=== PATIENT | female | born 1955 | race African-American/Black ===

== ENCOUNTER 2024-08-07 14:56 | Emergency (ER) | payer OTHER ==
[~2024-08-07] VITALS: Ht 165.1 cm; Wt 148.0 kg
[2024-08-07 15:17] VITALS: O2SAT 99
[2024-08-07] MEDS ORDERED: ATEN50TA MT (19:30)
[2024-08-07] MEDS ORDERED: METF-416 MT (19:30)
[2024-08-07] MEDS ORDERED: GLIP10TA17 MT (19:30)
[2024-08-07] MEDS ORDERED: LISI20TA31 MT (19:30)
[2024-08-07 19:43] VITALS: BP 147/86; PULSE 70; RESP 18; TEMP 36.78072; O2SAT 98
== END 2024-08-07 19:45 | disposition home or self-care (01) ==
LOC: ER 14:56
DX: E11.9 Type 2 diabetes mellitus without complications (principal); I10 Essential (primary) hypertension; Z76.0 Encounter for issue of repeat prescription; Z79.84 Long term (current) use of oral hypoglycemic drugs; Z79.899 Other long term (current) drug therapy
CPT/HCPCS: 99281

== ENCOUNTER 2025-04-17 08:20 | Emergency (ER) | payer OTHER ==
[~2025-04-17] VITALS: Ht 170.2 cm; Wt 158.0 kg
[~2025-04-17 08:20] MED LIST: ATEN50TA MT; GLIP10TA17 MT; LISI20TA31 MT; METF-416 MT
[2025-04-17 08:26] VITALS: O2SAT 98
[2025-04-17 09:44] LABS: BASOPHILS % 0.4 % (0.0-2.0); EOSINOPHILS % 0.3 % (0.0-5.0); HEMATOCRIT. 42.3 % (36.0-48.0); HEMOGLOBIN. 14.1 g/dL (12.0-16.0); LYMPHOCYTES % 24.4 % (20.0-50.0); MEAN PLATELET VOLUME 10.0 fl (7.4-10.4); MONOCYTES % 4.9 % (2.0-8.0); NEUTROPHILS % 70.0 % (40.0-76.0); PLATELET 190 x1000/uL (130-400); RED BLOOD CELL COUNT 4.68 mill/uL (4.2-5.4); RED CELL DISTRIBUTION WIDTH 13.1 % (11.6-14.6)
[2025-04-17 10:07] LABS: BG BASE EXCESS -1.0 mmol/L (-2.0-3.0); BG CARBOXYHEMOGLOBIN 1.0 % (0.5-1.5); BG DEOXYHEMOGLOBIN 2.3 % (0.0-5.0); BG FRACTION INSPIRED OXYGEN 21; BG HCO3 ACT 22.7 mmol/L (21.0-28.0); BG METHEMOGLOBIN 0.2 % (0.5-1.5); BG OXYGEN SATURATION 97.7 % (94.0-98.0); BG OXYHEMOGLOBIN 96.5 % (94.0-98.0); BG PCO2 35.2 mmHg (32.0-45.0); BG PH 7.428 (7.350-7.450); BG PO2 98.1 mmHg (83.0-108.0); BG SAMPLE SITE RIGHT BRACHIAL; BG TOTAL HEMOGLOBIN 14.4 g/dL (12.0-16.0); BG VENT MODE ROOM AIR
[2025-04-17 10:10] LABS: CREATININE 1.0 mg/dL (0.6-1.0); UREA NITROGEN BLOOD 12 mg/dL (9-23)
[2025-04-17] MEDS ORDERED: GLYC30DR4 EACHEYE (10:15)
[2025-04-17 11:00] VITALS: BP 188/90; PULSE 73; RESP 18; TEMP 36.8; O2SAT 97
== END 2025-04-17 11:05 | disposition home or self-care (01) ==
LOC: ER 08:20
DX: R42 Dizziness and giddiness (principal); E11.9 Type 2 diabetes mellitus without complications; I11.9 Hypertensive heart disease without heart failure; R09.02 Hypoxemia; E86.0 Dehydration; Z79.84 Long term (current) use of oral hypoglycemic drugs
CPT/HCPCS: 36415; 36600; 71045; 80048; 82375; 82805; 85025; 93005; 99285